=== PATIENT | female | born 2000 | race Asian ===

== ENCOUNTER 2020-07-11 17:05 | Emergency (ER) | payer OTHER, SELFPAY ==
[2020-07-11 17:31] VITALS: BP 125/82; PULSE 100; RESP 20; TEMP 36.6; O2SAT 100
--- NOTE | 2020-07-11 17:45 | PC.NURSE ---
s/p took shot of alcohol last night, reports lips have been tingly and mouth swollen since. Pt states she took generic Benadryl at 1400 today it didn't help . No resp distress, airway patent, no lip or tongue swelling
[2020-07-11 17:47] VITALS: BP 143/75; PULSE 70; RESP 18; O2SAT 100
--- NOTE | 2020-07-11 17:52 | ED.GENADULT ---
HPI - General Adult General Chief complaint: Allergic Reaction <Carlos Kauffman PA-C - Last Filed: 07/11/20 17:57> Stated complaint: ?Allergic Reaction <Carlos Kauffman PA-C - Last Filed: 07/11/20 17:57> Time Seen by Provider: 07/11/20 17:31 <Carlos Kauffman PA-C - Last Filed: 07/11/20 17:57> Source: patient, family and RN notes reviewed <Carlos Kauffman PA-C - Last Filed: 07/11/20 17:57> Mode of arrival: ambulatory <Carlos Kauffman PA-C - Last Filed: 07/11/20 17:57> Limitations: no limitations <Carlos Kauffman PA-C - Last Filed: 07/11/20 17:57> History of Present Illness HPI narrative: Patient is a 20-year-old female who presents with concern for allergic reaction notes that she took a shot of whiskey last night felt like her throat was tightening has had this sensation off and on since yesterday took an allergy pill this morning with no improvement on arrival notes she has slight discomfort of the throat on exam there is no edema or other concerning findings denies any URI symptoms or similar occurrence in the past <Carlos Kauffman PA-C - Last Filed: 07/11/20 17:57> Review of Systems Review of Systems: All systems reviewed & are unremarkable except as noted in HPI and below <Carlos Kauffman PA-C - Last Filed: 07/11/20 17:57> PMFSH Social History Social History: Social History Gender identity (if verbalized by the patient): Female <Carlos Kafufman PA-C - Last Filed: 07/11/20 17:57> Exam Narrative: Exam Narrative: GENERAL: Well-appearing, well-nourished, and in no acute distress. HEAD: Normocephalic, atraumatic. EYES: PERRLA and EOMI. ENT: Nares clear, no rhinorrhea or epistaxis. Mucous membranes moist. Oropharynx without tonsillar hypertrophy exudate or other lesions. No angioedema in the oropharynx NECK: Supple. No adenopathy or masses. CHEST: Clear to auscultation. No respiratory distress. No wheezes rales or rhonchi HEART: Regular rate and rhythm. No murmur heard. EXTREMITIES: Normal range of motion. No edema. SKIN: Warm, dry, no rash. NEURO: No focal deficits. Alert and oriented x3. Cranial nerves II through XII grossly intact PSYCH: Normal mood and affect. <DOE Salcido Last Filed: 07/11/20 17:57> Course Course Emergency Course: Patient evaluated emergency department will be sent home with outpatient follow-up afebrile nontoxic-appearing no distress felt appropriate for outpatient reevaluation <Carlos Kauffman PA-C - Last Filed: 07/11/20 17:57> Vital Signs Vital signs: Vital Signs Temperature 97.9 F 07/11/20 17:31 Pulse Rate 100 07/11/20 17:31 Respiratory Rate 20 07/11/20 17:31 Blood Pressure 125/82 07/11/20 17:31 Pulse Oximetry 100 07/11/20 17:31 Temperature 97.9 F 07/11/20 17:31 Pulse Rate 70 07/11/20 17:47 Respiratory Rate 18 07/11/20 17:47 Blood Pressure 143/75 H 07/11/20 17:47 Pulse Oximetry 100 07/11/20 17:47 <Carlos Kauffman PA-C - Last Filed: 07/11/20 17:57> Vital Signs Temperature 97.9 F 07/11/20 17:31 Pulse Rate 100 07/11/20 17:31 Respiratory Rate 20 07/11/20 17:31 Blood Pressure 125/82 07/11/20 17:31 Pulse Oximetry 100 07/11/20 17:31 Temperature 97.9 F 07/11/20 17:31 Pulse Rate 70 07/11/20 17:47 Respiratory Rate 18 07/11/20 17:47 Blood Pressure 143/75 H 07/11/20 17:47 Pulse Oximetry 100 07/11/20 17:47 <Julia Cosme MD - Last Filed: 07/11/20 18:48> Medical Decision Making MDM Narrative Medical decision making narrative: ABCs and vital signs intact and stable patient will be discharged home with outpatient follow-up felt appropriate for outpatient reevaluation <DOE Salcido Last Filed: 07/11/20 17:57> Vital Signs Vital Signs: Vital Signs Temperature 97.9 F 07/11/20 17:31 Pulse Rate 100 07/11/20 17:31 Respiratory Rate
== END 2020-07-11 18:25 | disposition home or self-care (01) ==
PROVIDERS: Emergency Provider General Practice
DX: J02.9 Acute pharyngitis, unspecified (principal)
CPT/HCPCS: 99283